=== PATIENT | female | born 1995 | race African-American/Black ===

== ENCOUNTER 2017-12-03 00:56 | Emergency (ER) | payer OTHER ==
[2017-12-03] MEDS ORDERED: Lidocaine 1%* 5 ML VIAL INJ ONE (01:52)
[2017-12-03] MEDS ORDERED: Fluorescein Sodium TOPICAL* 1 MG TEST OPHTHALMIC ONE (01:53)
[2017-12-03] MEDS ORDERED: Tetracaine 0.5% OPTH.SOL 4 ML* 1 DROP BTL LEFT EYE ONE (01:53)
[2017-12-03] MEDS ORDERED: Tetracaine 0.5% OPTH.SOL 15ML* BTL ONE (01:54)
[2017-12-03] MEDS ORDERED: Fluorescein Sodium TOPICAL* 1 MG TEST ONE (01:54)
[2017-12-03] MEDS ORDERED: Polymyx/Trimethoprim OPTH* 10 ML BTL LEFT EYE ONE (02:19)
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
[2017-12-03 03:47] VITALS: BP 103/57
== END 2017-12-03 03:40 | disposition home or self-care (01) ==
LOC: ED 00:56
DX: S01.81XA Laceration without foreign body of other part of head, initial encounter (principal); S05.02XA Injury of conjunctiva and corneal abrasion without foreign body, left eye, initial encounter; W25.XXXA Contact with sharp glass, initial encounter; Y92.9 Unspecified place or not applicable
CPT/HCPCS: 12013; 99282; A9270-GY

== ENCOUNTER 2020-07-18 15:36 | Inpatient (IN) ==
[2020-07-18 15:52] LABS: ABS Basophils 0.1 10^3/ul (0-0.2); ABS Eosinophils 0.4 10^3/ul (0-0.6); ABS Lymphocytes 2.7 10^3/ul (1.0-4.8); ABS Monocytes 0.5 10^3/ul (0-0.8); ABS Neutrophils 5.2 10^3/ul (1.5-7.7); Eosinophil % 4.8 %; Hematocrit 35 % (35-47); Lymphocyte % 30.2 %; Mean Corpuscular HGB Conc 35 g/dL (31-36); Mean Corpuscular Hemoglobin 33 pg (27-31); Mean Corpuscular Volume 95 fL (80-97); Mean Platelet Volume 6.7 fL (7.4-10.4); Platelet Count 223 10^3/uL (150-450); Red Blood Count 3.66 10^6 /uL (3.70-4.87); Red Cell Distribution Width 13 % (10-15)
[2020-07-18 16:00] LABS: Urine Appearance Cloudy; Urine Bilirubin Negative (Negative); Urine Blood Negative (Negative); Urine Color Yellow; Urine Glucose Negative (Negative); Urine Ketones Negative (Negative); Urine Nitrite Negative (Negative); Urine Protein Negative (Negative); Urine Specific Gravity 1.016 (1.010-1.030); Urine Urobilinogen Negative (Negative)
[2020-07-18 16:06] LABS: Urine Bacteria Absent (Absent); Urine Red Blood Cell 2+(6-10/hpf) (Absent); Urine Squamous Epithelial Cell Present (Absent); Urine White Blood Cell 2+(11-20/hpf) (Absent)
[2020-07-18 16:11] LABS: ALT 11 U/L (7-52); AST 18 U/L (13-39); Albumin 4.7 g/dL (3.2-5.2); Alkaline Phosphatase 37 U/L (34-104); Anion Gap 7 mmol/L (2-11); BUN/Creatinine Ratio 9.8 (8-20); Blood Urea Nitrogen 11 mg/dL (6-24); CO2 Carbon Dioxide 24 mmol/L (22-32); Calcium 9.6 mg/dL (8.6-10.3); Chloride 108 mmol/L (101-111); EGFR African American 72.9 (>60); EGFR Non-African American 60.3 (>60); Globulin 2.4 g/dL (2-4); Glucose 107 mg/dL (70-100); Sodium 139 mmol/L (135-145); Total Protein 7.1 g/dL (6.4-8.9)
[2020-07-18 16:12] LABS: Urine Benzodiazepine Screen Presumptive Positive (None Detect); Urine Cannabinoids Screen Presumptive Positive (None Detect); Urine Opiates Screen None Detected (None Detect)
[2020-07-18] MEDS ORDERED: diPHENhydraMINE IV 50 MG/ML 1 ml VIAL (BENADRYL) IM ONE (16:15)
[2020-07-18] MEDS ORDERED: LORazepam 2 mg VIAL 1 ml IM ONE (16:15)
[2020-07-18] MEDS ORDERED: Haloperidol 5 mg/ml SDV IV/IM 5 MG/ML AMP IM ONE (16:15)
[2020-07-18 16:16] LABS: Acetaminophen < 15 mcg/mL; Alcohol, S < 10 mg/dL (<10); Salicylate < 2.50 mg/dL (<30)
[2020-07-18 16:17] LABS: HCG Pregnancy < 0.60 mIU/mL
[2020-07-18 16:31] LABS: TSH Ultra Thyroid Stim Horm 0.69 mcIU/mL (0.34-5.60)
[2020-07-18] MEDS ORDERED: Lorazepam PYXIS KEY ONE (17:30)
[2020-07-18] MEDS ORDERED: Al Hydrox/Mg Hydrox/Simet LIQ 30 ML UDC PO PRN (18:35)
[2020-07-18] MEDS ORDERED: chlorproMAZINE TAB* 50 MG PO PRN (18:39)
[2020-07-19] MEDS: Vitamin THERAPEUTIC TAB PO SCH (13:34)
[2020-07-20] MEDS: Vitamin THERAPEUTIC TAB PO SCH (08:16)
[2020-07-20 08:28] LABS: HDL Cholesterol 65.4 mg/dL
[2020-07-21] MEDS: Vitamin THERAPEUTIC TAB PO SCH (07:42)
[2020-07-22] MEDS: Vitamin THERAPEUTIC TAB PO SCH (08:17)
[2020-07-22 09:43] VITALS: BP 106/76
== END 2020-07-22 13:00 | disposition home or self-care (01) ==
LOC: ED 15:36 → BSU 21:20
PROVIDERS: ADMIT Psychiatry & Neurology Addiction Psychiatry; ATTEND Psychiatry & Neurology Psychiatry